=== PATIENT | male | born 1980 | race Caucasian/White ===

== ENCOUNTER → 2016-10-29 | Outpatient (CLI) | payer OTHER ==
[2015-04-30 01:44] VITALS: BP 120/75
--- NOTE | 2016-10-29 14:21 | KCIC ---
Ultrasound evaluation of the posterior head Indication: Palpable lump right posterior aspect of the scalp TECHNIQUE: Multiple real-time grayscale sonographic images were obtained over the palpable area of interest of the right posterior scalp FINDINGS: There is no abnormal mass, fluid collection, or skin thickening over the area of palpable concern. IMPRESSION: There is no abnormal mass, fluid collection, or skin thickening over the area of palpable concern. Electronically signed by: Farhan Quinteros MD (10/29/2016 2:18 PM)
== END | disposition home or self-care (01) ==
LOC: KCIC US 13:14
PROVIDERS: ATTEND Nurse Practitioner Family
DX: R22.0 Localized swelling, mass and lump, head (principal)
CPT/HCPCS: 76536

== ENCOUNTER 2017-05-11 23:03 | Emergency (ER) | payer OTHER ==
[~2017-05-11] VITALS: Ht 182.9 cm; Wt 131.5 kg
[2017-05-12] VITALS: BP 166/85
--- NOTE | 2017-05-12 09:15 | RAD ---
4 views left knee 05/12/2017 Clinical indication: Left knee pain. Comparison: None. Findings: No acute fracture or traumatic malalignment. The joint spaces are maintained. No significant knee joint effusion. Impression: No acute osseous abnormality.
--- NOTE | 2017-05-12 21:20 | PHYS DOC ---
Past Medical History Past Medical History: Depression, Hypertension Past Surgical History: No Surgical History Alcohol Use: None Drug Use: None Adult General Chief Complaint Chief Complaint: KNEE INJURY [facility] HPI Patient is a 37 year old male who has had ongoing left knee pain. He recently had an MRI of the knee and has not yet received his results. He is supposed to be wearing a knee immobilizer but states that he was not wearing it when he bent down giving his child a bath. He then had a sensation that his knee had popped out and he was unable to straighten his leg all the way without pain. He immediately presented to the emergency department. Review of Systems Review of Systems Constitutional: Denies fever or chills [] Respiratory: Denies cough or shortness of breath [] Cardiovascular: No additional information not addressed in HPI [] Musculoskeletal: See history of present illness Integument: Denies rash or skin lesions [] Neurologic: Denies headache, focal weakness or sensory changes [] Endocrine: Denies polyuria or polydipsia [] All other systems were reviewed and found to be within normal limits, except as documented in this note. Allergies Allergies Allergies Coded Allergies Type Severity Reaction Last Updated Verified No Known Drug Allergies 04/30/15 No Physical Exam Physical Exam Constitutional: Well developed, well nourished, no acute distress, non-toxic appearance. [] Cardiovascular:Heart rate regular rhythm, no murmur [] Lungs & Thorax: Bilateral breath sounds clear to auscultation [] Skin: Warm, dry, no erythema, no rash. [] Extremities: Tenderness to lateral knee with palpation, drawer pull test negative, no cyanosis, no clubbing, ROM decreased due to pain, no edema or erythema. [] Neurologic: Alert and oriented X 3, normal motor function, normal sensory function, no focal deficits noted. [] Psychologic: Affect normal, judgement normal, mood normal. [] Current Patient Data Vital Signs Vital Signs Date Time Temp Pulse Resp B/P (MAP) Pulse Ox O2 Delivery O2 Flow Rate FiO2 05/12/17 00:00 97.9 88 16 98 Room Air 97.9 EKG EKG [] Radiology/Procedures Radiology/Procedures []PATIENT: BISMARK CRUZ ACCOUNT: [id number] : 1980 LOCATION: ER AGE: 37 SEX: M EXAM STATUS: DEP ER ORD. PHYSICIAN: ALESSANDRO RIOS APRN REASON: feels like it popped out of place tonight PROCEDURE: KNEE LEFT 4V 4 views left knee 05/12/2017 Clinical indication: Left knee pain. Comparison: None. Findings: No acute fracture or traumatic malalignment. The joint spaces are maintained. No significant knee joint effusion. Impression: No acute osseous abnormality. DICTATED and SIGNED BY: SAMANTHA MACK MD DATE: 05/12/17910 CC: ALESSANDRO RIOS APRN; NO PCP ~ Course & Med Decision Making Course & Med Decision Making Pertinent Labs and Imaging studies reviewed. (See chart for details) []1. Knee pain He may use ibuprofen or Tylenol for pain. Please reapply her knee immobilizer when you get home. Return to the ED if worsening otherwise please follow-up with your physician who is treating this ongoing knee pain. Dragon Disclaimer Dragon Disclaimer This electronic medical record was generated, in whole or in part, using a voice recognition dictation system. Departure Departure Impression: Primary Impression: Knee pain Disposition: HOME, SELF-CARE Condition: STABLE Patient Instructions: Knee Pain Additional Instructions: Follow-up with your primary care provider and/or orthopedist on Saturday for results and further treatment. You may take ibuprofen or Tylenol for pain. Ice packs or hot compresses for comfort. You are advised to apply your knee immobilizer and continue to wear that until seen by orthopedics. ALESSANDRO RIOS APRN May 12, 2017 21:20
== END 2017-05-12 01:01 | disposition home or self-care (01) ==
LOC: ER 23:03
DX: M25.562 Pain in left knee (principal); F32.9 Major depressive disorder, single episode, unspecified; I10 Essential (primary) hypertension
CPT/HCPCS: 73564; 99284